=== PATIENT | female | born 1945 | race Caucasian/White ===

== ENCOUNTER 2024-11-20 06:02 | Day surgery (SDC) | payer MEDICARE, OTHER, SELFPAY ==
[2024-11-11 13:44] VITALS: BMI 30.5
[2024-11-20 06:39] VITALS: BP 183/68
[2024-11-20] MEDS: NORMOSOL-R/PLASMALYTE-A 1000 IV (06:54)
[2024-11-20 07:02] VITALS: BMI 30.5
[2024-11-20 08:30] VITALS: BP 171/58; BP 183/68
[2024-11-20 08:45] VITALS: BP 158/49
[2024-11-20 09:00] VITALS: BP 175/64
[2024-11-20 09:15] VITALS: BP 184/72
[2024-11-20 09:30] VITALS: BP 182/75
[2024-11-20] MEDS: ZOFRAN 4 MG IV (10:00)
== END 2024-11-20 10:05 | disposition home or self-care (01) ==
LOC: SDS 06:02
PROVIDERS: ATTENDING PHYSICIAN Otolaryngology
DX: C82.31 Follicular lymphoma grade IIIa, lymph nodes of head, face, and neck (principal); R59.0 Localized enlarged lymph nodes
CPT/HCPCS: 38510; 88305